=== PATIENT | female | born 1980 | race Caucasian/White ===

== ENCOUNTER → 2024-10-30 07:25 | Outpatient (REF) | payer OTHER, BC, SELFPAY | LOC: HWRAD 07:25 | PROVIDERS: ATTENDING PHYSICIAN Chiropractor; FAMILY PHYSICIAN Internal Medicine | DX: M99.05 Segmental and somatic dysfunction of pelvic region (principal); M99.03 Segmental and somatic dysfunction of lumbar region; M54.32 Sciatica, left side | CPT/HCPCS: 72110; 72170 ==